=== PATIENT | male | born 1945 | race African-American/Black ===

== ENCOUNTER 2018-08-17 10:46 | Inpatient (IN) | payer MEDICARE ==
[~2018-08-17] VITALS: Ht 170.2 cm; Wt 53.6 kg
--- NOTE | ~2018-08-17 | PN ---
PATIENT:LALO ZIMMERMAN MEDICAL RECORD: [id number] LOCATION:[facility] ADMISSION DATE: 08/17/18 PROGRESS NOTE DATE OF SERVICE: 08/19/2018 SUBJECTIVE: The patient was seen for followup on hospital rounds. He is admitted to the hospital because of confusion. OBJECTIVE: The patient has a flat mood. He is only oriented to person and somewhat to place and situation, but not fully. He seems to be angry and irritable, but will not answer questions or does not appear to be able to explain what the difficulty is. He is certainly not eating adequately. This is probably related to the stage of the dementia he is in. ASSESSMENT: No change in diagnoses. PLAN: The patient will be given Megace at a dose of 40 mg twice daily to assist with appetite stimulation. His long-term prognosis is guarded. TRANSINT:[id number] Voice Confirmation ID: [id number] DOCUMENT ID: [id number] MIKE OMALLEY MD at 1502 CC: [id number] DICTATION DATE: 08/19/18 1130 ENGRAVING PRESS OPERATOR: 08/19/18 1240 ADM IN [place] [id number] [place] [address]
--- NOTE | ~2018-08-17 | PN ---
PATIENT:LALO ZIMMERMAN MEDICAL RECORD: [id number] LOCATION:[facility] ADMISSION DATE: 08/17/18 PROGRESS NOTE DATE OF SERVICE: 08/20/2018 SUBJECTIVE: The patient's case was discussed with staff. He has no new complaint. OBJECTIVE: The patient is significantly impaired cognitively with limited insight about his condition. He is somewhat hypervigilant, even paranoid about his surroundings; but when specifically asked about it, he denies such symptoms. I think that there is clear evidence of a depressed mood, so I am going to start him on a low dose of Zoloft. Weighing the relative risk and benefit, I think it is certainly something that might improve his functioning and ability to understand his environment with a very low side effect or risk profile. ASSESSMENT: No change in diagnoses. PLAN: Current medicines will be maintained. I am going to start him on Zoloft for reasons described above. TRANSINT:[id number] Voice Confirmation ID: [id number] DOCUMENT ID: [id number] MIKE OMALLEY MD at 1203 CC: [id number] DICTATION DATE: 08/20/18 1545 CASING OPERATOR: 08/20/18 1745 ADM IN [facility] [address] [place] [address]
--- NOTE | ~2018-08-17 | PN ---
PATIENT:LALO ZIMMERMAN MEDICAL RECORD: [id number] LOCATION:[facility] ADMISSION DATE: 08/17/18 PROGRESS NOTE DATE OF SERVICE: 08/23/2018 SUBJECTIVE: The patient's case was discussed with staff. He has no new complaint. OBJECTIVE: The patient denies intent to harm himself or others. He tolerates his medicines well. ASSESSMENT: No change in diagnoses. PLAN: The patient is quite confused, but he has not been aggressive. He certainly has some paranoid, hypervigilant symptoms, but I do not see him as being an acute danger to himself or others. I will maintain him on current medications and feel that he is reasonably safe and appropriate to be transitioned out of the hospital. We have been able to find prison placement for him and he is going to go to the [facility] tomorrow morning. Followup will be with his primary care prison physician. TRANSINT:[id number] Voice Confirmation ID: [id number] DOCUMENT ID: [id number] MIKE OMALLEY MD at 1627 CC: [id number] DICTATION DATE: 08/23/18 1701 FILLING HAULER: 08/23/18 2146 DIS IN 08/24/18 [facility] [address] [place] [address]
--- NOTE | ~2018-08-17 | PN ---
PATIENT:LALO ZIMMERMAN MEDICAL RECORD: [id number] LOCATION:[facility] ADMISSION DATE: 08/17/18 PROGRESS NOTE DATE OF SERVICE: 08/21/2018 SUBJECTIVE: The patient's case was discussed with staff. He has no new complaint. OBJECTIVE: The patient is in good behavioral control with limited insight about his condition. He is generally tolerating his medicines well. ASSESSMENT: No change in diagnoses. PLAN: Current medicines and therapies have been reviewed and will be maintained. TRANSINT:[id number] Voice Confirmation ID: [id number] DOCUMENT ID: [id number] MIKE OMALLEY MD at 0827 CC: [id number] DICTATION DATE: 08/21/18 1215 FLAT SURFACER JEWEL: 08/21/18 1229 ADM IN [id number] [place] [address]
--- NOTE | ~2018-08-17 | PSY ---
PATIENT NAME:LALO ZIMMERMAN MEDICAL RECORD: [id number] : 45 LOCATION:[facility] ADMISSION DATE: 08/17/18 ACCOUNT: [id number] PSYCHIATRIC EVALUATION DATE OF EVALUATION: 08/18/18 IDENTIFYING DATA: The patient is 72 years old and he is admitted to the hospital on a voluntary basis. CHIEF COMPLAINT: Confusion. HISTORY OF PRESENT ILLNESS: The patient comes to us from the [facility] in [place]. He was in their Emergency Room, very agitated. He apparently has had a recent stroke and also has a history of Parkinson's disease. The reports that he recently had gotten out of the house and was trying to walk away from the property, but when redirected became very agitated. The patient has no recollection of this. He is only partially oriented. He is flat, blunted and withdrawn. Apparently, the change in mental status and behavior is fairly acute. PAST MEDICAL HISTORY: Significant for a stroke several months ago. He also has a history of Parkinson's disease. The patient also has a history of high blood pressure. He denies other medical problems. PAST PSYCHIATRIC HISTORY: Denied by the patient, but at this point there are no collateral sources of information and I consider him to be unreliable. PAST FAMILY HISTORY: Denied by the patient, but again he is an unreliable historian because of his current condition. ALLERGIES: No known drug allergies. CURRENT MEDICATIONS: Include aspirin, lisinopril, Plavix, hydrocodone, Tylenol, Catapres, and albuterol. SOCIAL HISTORY: The patient is . He is a retired reefer truck driver. He denies a history of drug or alcohol abuse. He lives with his in [place]. MENTAL STATUS EXAMINATION: The patient is awake, alert and oriented to person and place only. His mood is depressed. His affect is constricted. Thought processes are very slowed. Memory, concentration, and abstraction abilities are least moderately impaired and he denies any intent to harm himself or others as well as overt psychotic symptoms. ASSETS: Supportive family members. LIABILITIES: Limited insight. DIAGNOSTIC IMPRESSION: AXIS I: Vascular dementia, rule out major depression. AXIS II: Deferred. AXIS III: Status post stroke, hypertension, chronic obstructive pulmonary disease and Parkinson's disease. AXIS IV: Moderate stressors. AXIS V: Global assessment of functioning is 30. PLAN: At this time, the patient is admitted to the hospital secondary to agitated, confused behavior associated with a stroke and/or Parkinson's disease. He will be comprehensively evaluated and treated with both mood stabilizing and memory enhancing medications. His long-term prognosis is guarded. TRANSINT:[id number] Voice Confirmation ID: [id number] DOCUMENT ID: [id number] MIKE OMALLEY MD at 1117 CC: [id number] DICTATION DATE: 08/18/18 1132 HIDE DROPPER: 08/18/18 1147 ADM IN [facility] [address] [place] [id number]
--- NOTE | ~2018-08-17 | PN ---
PATIENT:LALO ZIMMERMAN MEDICAL RECORD: [id number] LOCATION:[facility] ADMISSION DATE: 08/17/18 PROGRESS NOTE DATE OF SERVICE: 08/22/2018 SUBJECTIVE: The patient's case was discussed with staff. He has no new complaint. OBJECTIVE: The patient is in good behavioral control with limited insight about his condition. He is severely impaired cognitively. He is paranoid and hypervigilant, but not openly aggressive. ASSESSMENT: No change in diagnoses. PLAN: The patient's wants to take him home. I am going to credit support counselor her against that. He is likely to require more care than she can provide. If she wishes a detention placement, we will be happy to assist with that. TRANSINT:[id number] Voice Confirmation ID: [id number] DOCUMENT ID: [id number] MIKE OMALLEY MD at 1613 CC: [id number] DICTATION DATE: 08/22/18 1212 FACILITIES ENGINEER: 08/22/18 1241 ADM IN [place] [id number] [place] [id number]
--- NOTE | ~2018-08-17 | DS ---
PATIENT:LALO ZIMMERMAN :45 MEDICAL RECORD: [id number] DISCHARGE SUMMARY ADMISSION DATE: 08/17/18 DISCHARGE DATE: 08/24/18 IDENTIFYING DATA: The patient is 72 years old and he is admitted to the hospital on a voluntary basis because of confusion. The patient is referred to us by the [facility] Emergency Room in [place]. He was brought there in an agitated, combative state. He apparently has had a stroke and also has a history of Parkinson disease. The had reported that he had recently gotten out of the house and was trying to walk away from the property. When she tried to redirect him, he became very aggressive with her. The patient had no recollection of this and was only oriented to person. HOSPITAL COURSE: The patient was admitted to the hospital secondary to the aggressive behavior associated with the event mentioned above. He was found to have an advanced dementia and was treated with both mood stabilizing and memory-enhancing medications. The patient was referred to a snf, but the did not want him to go there. It was thought that perhaps there was a major depressive illness associated with this behavior, but I do not think that is the case now. Given his stroke and his history of hypertension, it is believed that he has a vascular dementia. DISCHARGE DIAGNOSES: AXIS I: Vascular dementia. AXIS II: None. AXIS III: Hypertension, status post stroke, chronic obstructive pulmonary disease, Parkinson disease. AXIS IV: Moderate. AXIS V: Global Assessment Of Functioning is 35. PLAN: At the time of discharge, the patient was not acutely aggressive to himself or others. He was in good behavioral control and was referred back to his primary care physician. Extensive efforts were made to help the understand the disease process and assist her in managing him at home. Hopefully, with these interventions, he will no longer be aggressive with her and she will not have to bring him to the Emergency Room. His long-term prognosis, however, is somewhat guarded given the degenerative nature of his underlying disease process. TRANSINT:[id number] Voice Confirmation ID: [id number] DOCUMENT ID: [id number] MIKE OMALLEY MD at 1556 CC: [id number] DICTATION DATE: 08/25/18 1251 ELECTRICAL CONTINUITY TESTER: 08/26/18 0845 DIS IN 08/24/18 [facility] [address] [facility] [place] [address]
[2018-08-17 14:09] VITALS: BP 166/87
[2018-08-17] MEDS ORDERED: ACETAMINOPHEN325 MG PO (15:13)
[2018-08-17] MEDS ORDERED: NORCO 7.5/325 T1 TA1 PO (15:14)
[2018-08-17] MEDS ORDERED: ASPIRIN81 MG PO (15:15)
[2018-08-17] MEDS ORDERED: CATAPRES0.1 MG PO (15:18)
[2018-08-17] MEDS ORDERED: LISINOPRIL10 MG PO (15:19)
[2018-08-17] MEDS ORDERED: IPRAT-ALBUT 0.5-3 ML UPD (15:19)
[2018-08-17] MEDS ORDERED: PLAVIX75 MG PO (15:19)
[2018-08-17 16:26] LABS: BASOPHILS 0.3 % (0-2); EOSINOPHILS 0.9 % (0-7); HEMATOCRIT 48.5 % (42.0-54.0); HEMOGLOBIN 16.8 g/dL (13.5-17.5); IMMATURE GRANULOCYTES 0.3 % (0-5); LYMPHOCYTES 17.3 % (15-50); MCH 31.1 pg (26.0-34.0); MCHC 34.6 g/dL (31.0-37.0); MCV 89.6 fL (80.0-100.0); MEAN PLATELET VOLUME 9.8 fL (7.4-10.4); MONOCYTES 5.5 % (2-11); NEUTROPHILS 75.7 % (40-80); PLATELET COUNT 275 10x3/uL (130-400); RBC 5.41 10x6/uL (4.20-6.10); RDW 13.9 % (11.5-14.5); WBC 9.9 10x3/uL (4.8-10.8)
[2018-08-17 16:50] LABS: ALBUMIN 4.3 g/dL (3.4-5.0); ALKALINE PHOSPHATASE 76 U/L (46-116); ALT (SGPT) 26 U/L (10-68); BILIRUBIN - TOTAL 0.78 mg/dL (0.2-1.3); CALC OSMOLALITY 274 mosm/kg (275-300); CARBON DIOXIDE 26.7 mmol/L (21.0-32.0); CHLORIDE - SERUM 99 mmol/L (98-107); CHOL - HDL RATIO 3.5 ratio (2.3-4.9); CHOLESTEROL, TOTAL 212 mg/dL (0-200); CREATININE - SERUM 0.9 mg/dL (0.6-1.3); GLUCOSE 98 mg/dL (74-106); HDL CHOLESTEROL 60 mg/dL (32-96); LDL CHOLESTEROL 140 mg/dL (0-100); LDL-HDL RATIO 2.3 ratio (1.5-3.5); POTASSIUM - SERUM 4.1 mmol/L (3.5-5.1); PROTEIN - SERUM 8.3 g/dL (6.4-8.2); SODIUM 138 mmol/L (136-145); THYROID STIMULATING HORMONE 1.89 uIU/mL (0.36-3.74); TRIGLYCERIDE 64 mg/dL (30-200); UREA NITROGEN 11 mg/dL (7-18); eGFR NON AFRICAN AMERICAN 88 mL/min (90-120)
[2018-08-17 20:23] VITALS: BP 177/92
[2018-08-18 06:13] LABS: RAPID PLASMA REAGIN Non Reactive (Non Reactive)
[2018-08-18 07:21] LABS: VITAMIN D 25 HYDROXY 67.9 ng/mL (30.0-100.0)
[2018-08-18 10:12] VITALS: BP 95/57
[2018-08-18 14:01] VITALS: BMI 18.6
[2018-08-19 07:00] VITALS: BP 126/71
[2018-08-20 00:50] VITALS: BP 110/72
[2018-08-20 00:57] VITALS: BP 110/72
[2018-08-20 07:00] VITALS: BP 111/67
[2018-08-20 11:42] VITALS: Ht 170.2 cm; Wt 53.6 kg
[2018-08-20 19:38] VITALS: BP 135/68
[2018-08-21 08:00] VITALS: BP 133/61
[2018-08-21 19:51] VITALS: BP 135/82
[2018-08-22 09:04] VITALS: BP 152/86
[2018-08-22 20:04] VITALS: BP 156/81
[2018-08-23 07:36] VITALS: BP 140/86
[2018-08-23 08:05] LABS: APPEARANCE CLEAR (CLEAR); COLOR DK YELLOW (YELLOW)
[2018-08-23 08:06] LABS: BACTERIA FEW /hpf (NONE SEEN); BILIRUBIN NEGATIVE (NEGATIVE); EPITHELIAL CELLS OCC /hpf (0-5); GLUCOSE NEGATIVE (NEGATIVE); KETONE NEGATIVE (NEGATIVE); MUCUS >1+ /lpf (NONE SEEN); NITRITE NEGATIVE (NEGATIVE); PROTEIN NEGATIVE (NEGATIVE); SPECIFIC GRAVITY 1.015 (1.005-1.020); TALC POWDER CRYSTALS RARE /hpf (NONE SEEN); WHITE CELLS - URINE OCC /hpf (0-5)
[2018-08-23] MEDS ORDERED: LIPITOR10 MG PO (17:01)
[2018-08-23] MEDS ORDERED: NAMENDA5 MG PO (17:01)
[2018-08-23] MEDS ORDERED: MEGACE40 MG PO (17:02)
[2018-08-23] MEDS ORDERED: ZOLOFT50 MG PO (17:02)
[2018-08-23 20:49] VITALS: BP 130/60
[2018-08-24 10:58] VITALS: BP 138/69
== END 2018-08-24 13:00 | DRG 57 ==
LOC: D.PSYCH 10:46
PROVIDERS: Psychiatry & Neurology Psychiatry
DX: I69.318 Other symptoms and signs involving cognitive functions following cerebral infarction (principal); J44.9 Chronic obstructive pulmonary disease, unspecified; I10 Essential (primary) hypertension; G20 Parkinson's disease; E78.5 Hyperlipidemia, unspecified; F32.9 Major depressive disorder, single episode, unspecified; F01.50 Vascular dementia, unspecified severity, without behavioral disturbance, psychotic disturbance, mood disturbance, and anxiety; F02.80 Dementia in other diseases classified elsewhere, unspecified severity, without behavioral disturbance, psychotic disturbance, mood disturbance, and anxiety